=== PATIENT | female | born 1940 | race Caucasian/White ===

== ENCOUNTER 2017-08-16 09:26 | Inpatient (IN) | payer MEDICARE, OTHER ==
--- NOTE | 2017-08-16 09:32 | ED ---
General Adult HPI - General Stated complaint: SOB Time Seen by Provider: 08/16/17 09:26 Source: patient, EMS, RN notes reviewed, old records reviewed Mode of arrival: EMS - History of Present Illness Initial comments: This is a 76-year-old female history of dementia and has history of atrial fibrillation per old records who is brought in by EMS with complaints of shortness of breath she was brought in by EMS from an [facility] home that apparently is closing in 5 days. Per paramedics patient demonstrates no complaints does not seem shortness of breath she has adequate aeration and pulse oximetry. No reports of fevers chills nausea vomiting sweats trauma. No other history available currently. - Related Data Home Medications Medication Instructions Recorded Confirmed Donepezil HCl [Aricept] 10 mg PO HS 02/03/14 08/16/17 Lisinopril-Hctz 10-12.5 mg 1 each PO DAILY 02/03/14 08/16/17 [Zestoretic 10-12.5] Memantine HCl [Namenda] 5 mg PO BID 02/03/14 08/16/17 Simvastatin [Zocor] 40 mg PO HS 02/03/14 08/16/17 Acetaminophen [Tylenol] 1 - 2 tab PO Q4H PRN 07/04/14 08/16/17 Naproxen Sodium [Aleve] 220 mg PO Q12HR PRN 07/04/14 08/16/17 Previous Rx's Medication Instructions Recorded Warfarin [Coumadin] 5 mg PO DAILY@1800 #60 tablet 02/06/14 Allergies Allergy/AdvReac Type Severity Reaction Status Date / Time aspirin [From Soma Compound] Allergy Unknown Verified 07/06/14 09:25 carisoprodol Allergy Unknown Verified 07/06/14 09:25 [From Soma Compound] Penicillins Allergy Rash/Hives Verified 07/06/14 09:25 cortisone AdvReac WITH Verified 07/06/14 09:25 INJECTIONS, GETS DIZZY BRIEFLY Review of Systems ROS Statement: Those systems with pertinent positive or pertinent negative responses have been documented in the HPI. ROS Other: All systems not noted in ROS Statement are negative. Limitations: ROS unobtainable due to patients medical condition Past Medical History Past Medical History: Atrial Fibrillation, Cancer, Dementia, Hyperlipidemia, Hypertension, Memory Impairment, Osteoarthritis (OA), Skin Disorder Additional Past Medical History / Comment(s): VARICOSE VEINS. vascular dementia ; vitamin D deficiency; PAF. 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 RECENT C/O NT IN LT FINGERTIPS. History of Any Multi-Drug Resistant Organisms: None Reported Past Surgical History: Adenoidectomy, Appendectomy, Section, Cholecystectomy, Hysterectomy, Orthopedic Surgery, Tonsillectomy Additional Past Surgical History / Comment(s): KEVIN TOTAL KNEES AND HIPS. C- section 3, colonoscopy many years ago. EXC SKIN CA FOREHEAD. Past Anesthesia/Blood Transfusion Reactions: Family History of Problems w/ Anesthesia, Postoperative Nausea & Vomiting (PONV) Additional Past Anesthesia/Blood Transfusion Reaction / Comment(s): SHAWN HAS PONV Smoking Status: Never smoker - Past Family History Daughter(s) Family Medical History: No Reported History Mother Family Medical History: Myocardial Infarction (MD) Father Family Medical History: Cancer Brother(s) Family Medical History: COPD Sister(s) Family Medical History: No Reported History Son(s) Family Medical History: No Reported History General Exam - General Exam Comments Initial Comments: This a well-developed well-nourished awake alert pleasant female who does demonstrate the stigmata of dementia General appearance: alert, in no apparent distress Head exam: Present: atraumatic, normocephalic, normal inspection Eye exam: Present: normal appearance, PERRL, EOMI. Absent: scleral icterus, conjunctival injection, periorbital swelling ENT exam: Present: normal exam, mucous membranes moist Neck exam: Present: normal inspection. Absent: tenderness, meningismus, lymphadenopathy Respiratory exam: Present: decreased breath sounds (Diminished breath sounds on the left side compared to the right). Absent: respiratory distress, wheezes, rales, rhonchi, stridor Cardiovascular Exam: Present: regular rate, normal rhythm, normal heart sounds. Absent: systolic murmur, diastolic murmur, rubs, gallop, clicks GI/Abdominal exam: Present: soft, normal bowel sounds. Absent: distended, tenderness, guarding, rebound, rigid Extremities exam: Present: normal inspection, full ROM, normal capillary refill. Absent: tenderness, pedal edema, joint swelling, calf tenderness Back exam: Present: normal inspection Neurological exam: Present: alert, oriented X3, CN II-XII intact Psychiatric exam: Present: normal affect, normal mood Skin exam: Present: warm, dry, intact, normal color. Absent: rash Course Vital Signs 08/16/17 08/16/17 08/16/17 09:28 11:28 12:48 Temperature 97.7 F Pulse Rate 91 94 81 Respiratory 16 18 16 Rate Blood Pressure 121/60 110/56 112/65 O2 Sat by Pulse 97 98 100 Oximetry Medical Decision Making - Medical Decision Making I did discuss the findings with Dr. Noel who did come to see the patient in emergency department patient will be admitted with consultation to Dr. Li's service. I did discuss this with him. There is some evidence of increased BNP indicating some congestive failure. - Lab Data Result diagrams: 08/16/17 11:25 08/16/17 11:25 Lab Results 08/16/17 08/16/17 08/16/17 Range/Units 11:25 11:25 11:25 WBC (3.8-10.6) k/uL RBC (3.80-5.40) m/uL Hgb (11.4-16.0) gm/dL Hct (34.0-46.0) % MCV (80.0-100.0) fL MCH (25.0-35.0) pg MCHC (31.0-37.0) g/dL RDW (11.5-15.5) % Plt Count (150-450) k/uL Neutrophils % % Lymphocytes % % Monocytes % % Eosinophils % % Basophils % % Neutrophils # (1.3-7.7) k/uL Lymphocytes # (1.0-4.8) k/uL Monocytes # (0-1.0) k/uL Eosinophils # (0-0.7) k/uL Basophils # (0-0.2) k/uL Manual Slide Review Poikilocytosis (manual Anisocytosis Microcytosis Ovalocytes PT 54.0 H (9.0-12.0) sec INR 5.9 H* (<1.2) APTT 37.6 H (22.0-30.0) sec Sodium (137-145) mmol/L Potassium (3.5-5.1) mmol/L Chloride (98-107) mmol/L Carbon Dioxide (22-30) mmol/L Anion Gap mmol/L BUN (7-17) mg/dL Creatinine (0.52-1.04) mg/dL Est GFR (CKD-EPI)AfAm (>60 ml/min/1.73 sqM) Est GFR (CKD-EPI)NonAf (>60 ml/min/1.73 sqM) Glucose (74-99) mg/dL Calcium (8.4-10.2) mg/dL Magnesium (1.6-2.3) mg/dL Total Bilirubin (0.2-1.3) mg/dL AST (14-36) U/L ALT (9-52) U/L Alkaline Phosphatase (38-126) U/L Total Creatine Kinase 24 L (30-135) U/L CK-MB (CK-2) 0.9 (0.0-2.4) ng/mL CK-MB (CK-2) Rel Index 3.8 Troponin I <0.012 (0.000-0.034) ng/mL NT-Pro-B Natriuret Pep 2770 pg/mL Total Protein (6.3-8.2) g/dL Albumin (3.5-5.0) g/dL 08/16/17 08/16/17 Range/Units 11:25 11:25 WBC 16.4 H (3.8-10.6) k/uL RBC 4.02 (3.80-5.40) m/uL Hgb 10.1 L (11.4-16.0) gm/dL Hct 31.2 L (34.0-46.0) % MCV 77.8 L (80.0-100.0) fL MCH 25.0 (25.0-35.0) pg MCHC 32.2 (31.0-37.0) g/dL RDW 16.4 H (11.5-15.5) % Plt Count 311 (150-450) k/uL Neutrophils % 71 % Lymphocytes % 4 % Monocytes % 5 % Eosinophils % 20 % Basophils % 0 % Neutrophils # 11.6 H (1.3-7.7) k/uL Lymphocytes # 0.7 L (1.0-4.8) k/uL Monocytes # 0.7 (0-1.0) k/uL Eosinophils # 3.2 H (0-0.7) k/uL Basophils # 0.1 (0-0.2) k/uL Manual Slide Review Performed Poikilocytosis (manual Present Anisocytosis Slight Microcytosis Slight Ovalocytes Present PT (9.0-12.0) sec INR (<1.2) APTT (22.0-30.0) sec Sodium 131 L (137-145) mmol/L Potassium 4.2 (3.5-5.1) mmol/L Chloride 97 L (98-107) mmol/L Carbon Dioxide 25 (22-30) mmol/L Anion Gap 9 mmol/L BUN 17 (7-17) mg/dL Creatinine 0.61 (0.52-1.04) mg/dL Est GFR (CKD-EPI)AfAm >90 (>60 ml/min/1.73 sqM) Est GFR (CKD-EPI)NonAf 87 (>60 ml/min/1.73 sqM) Glucose 109 H (74-99) mg/dL Calcium 8.5 (8.4-10.2) mg/dL Magnesium 1.9 (1.6-2.3) mg/dL Total Bilirubin 0.5 (0.2-1.3) mg/dL AST 21 (14-36) U/L ALT 20 (9-52) U/L Alkaline Phosphatase 103 (38-126) U/L Total Creatine Kinase (30-135) U/L CK-MB (CK-2) (0.0-2.4) ng/mL CK-MB (CK-2) Rel Index Troponin I (0.000-0.034) ng/mL NT-Pro-B Natriuret Pep pg/mL Total Protein 5.2 L (6.3-8.2) g/dL Albumin 2.7 L (3.5-5.0) g/dL - Radiology Data Radiology results: report reviewed (I did review the imaging and report is evidence of opacification of left lung field. Suspicion for metastatic disease. ), image reviewed Disposition Clinical Impression: Congestive heart failure, Lung mass Disposition: ADMITTED IP TO THIS [facility] Condition: Stable Referrals: Francisco Gonzales MD [Primary Care Provider] - 1-2 days
--- NOTE | 2017-08-16 09:54 | XR ---
EXAMINATION TYPE: XR chest 2V DATE OF EXAM: 08/16/2017 HISTORY: cough. REFERENCE: Previous study dated 02/03/2014. FINDINGS: There is nearly complete opacification of the left hemithorax. There are nodular densities in the left hemithorax as well as the right hemithorax. Heart size is obscured. The left pleural spac e is obscured. IMPRESSION: 1. NEAR COMPLETE OPACIFICATION OF THE LEFT HEMITHORAX. 2. I SUSPECT METASTATIC DISEASE BILATERALLY.
[2017-08-16 11:38] LABS: Anisocytosis Slight; Basophils # (A) 0.1 k/uL (0-0.2); Basophils % (A) 0 %; Eosinophils # (A) 3.2 k/uL (0-0.7); Eosinophils % (A) 20 %; HCT 31.2 % (34.0-46.0); HGB 10.1 gm/dL (11.4-16.0); Lymphocytes # (A) 0.7 k/uL (1.0-4.8); Lymphocytes % (A) 4 %; MCHC 32.2 g/dL (31.0-37.0); MCV 77.8 fL (80.0-100.0); Mean Platelet Volume 7.6; Microcytosis Slight; Monocytes # (A) 0.7 k/uL (0-1.0); Monocytes % (A) 5 %; Neutrophils # (A) 11.6 k/uL (1.3-7.7); Neutrophils % (A) 71 %; Platelet Count 311 k/uL (150-450); RBC 4.02 m/uL (3.80-5.40); RDW 16.4 % (11.5-15.5); WBC 16.4 k/uL (3.8-10.6)
[2017-08-16 11:53] LABS: INR 5.9 (<1.2); Partial Thromboplastin Time 37.6 sec (22.0-30.0)
[2017-08-16 11:56] LABS: ALT 20 U/L (9-52); AST 21 U/L (14-36); Albumin 2.7 g/dL (3.5-5.0); Alkaline Phosphatase 103 U/L (38-126); Anion Gap 9 mmol/L; Blood Urea Nitrogen 17 mg/dL (7-17); Calcium 8.5 mg/dL (8.4-10.2); Carbon Dioxide 25 mmol/L (22-30); Chloride 97 mmol/L (98-107); Glucose 109 mg/dL (74-99); Magnesium 1.9 mg/dL (1.6-2.3); Potassium 4.2 mmol/L (3.5-5.1); Sodium 131 mmol/L (137-145); Total Bilirubin 0.5 mg/dL (0.2-1.3); Total Protein 5.2 g/dL (6.3-8.2)
[2017-08-16 11:57] LABS: Ovalocytes Present; Poikilocytosis (M) Present
[2017-08-16 11:59] LABS: Creatine Kinase 24 U/L (30-135)
[2017-08-16 12:12] LABS: Creatine Kinase MB 0.9 ng/mL (0.0-2.4); Troponin I <0.012 ng/mL (0.000-0.034)
[2017-08-16] MEDS ORDERED: ACETAMINOPHEN TAB 325 MG TAB PO PRN (13:29)
[2017-08-16] MEDS ORDERED: NAPROXEN 250 MG TAB PO PRN (13:29)
[2017-08-16] MEDS: SODIUM CHLORIDE 0.9% 1,000 ML IV SCH (14:40)
[2017-08-16] MEDS: FUROSEMIDE 10 MG/ML 4 ML VIAL IV SCH (17:13)
[2017-08-16] MEDS: ATORVASTATIN 20 MG TAB PO SCH (20:47)
[2017-08-16] MEDS: DONEPEZIL 10 MG TAB PO SCH (21:34)
[2017-08-16] MEDS: MEMANTINE 5 MG TAB PO SCH (21:34)
[2017-08-16 22:51] LABS: Amorphous Sediment,Urine Rare /hpf; Appearance,Urine Clear (Clear); Bilirubin,Urine Negative (Negative); Blood,Urine Negative (Negative); Color,Urine Light Yellow; Glucose,Urine (UA) Negative (Negative); Hyaline Casts,Urine 3 /lpf (0-2); Ketones,Urine Negative (Negative); Leukocyte Esterase,Urine Trace (Negative); Mucus,Urine Rare /hpf; Nitrite,Urine Positive (Negative); Protein,Urine Negative (Negative); RBC,Urine 1 /hpf (0-5); Specific Gravity,Urine 1.005 (1.001-1.035); Urobilinogen,Urine <2.0 mg/dL (<2.0); WBC,Urine 1 /hpf (0-5)
[2017-08-17] MEDS: FUROSEMIDE 10 MG/ML 4 ML VIAL IV SCH ×2 (06:23→20:36)
[2017-08-17 07:01] LABS: Prothrombin Time 56.9 sec (9.0-12.0)
[2017-08-17 07:04] LABS: INR 6.2 (<1.2)
[2017-08-17] MEDS: LISINOPRIL-HCTZ 10-12.5 MG 1 EACH TAB PO SCH (09:33)
[2017-08-17] MEDS: MEMANTINE 5 MG TAB PO SCH ×2 (09:33→20:36)
[2017-08-17] MEDS ORDERED: RX INFO: IV CONTRAST WAS GIVEN 1 EACH MISC MISCELLANE PRN (10:01)
[2017-08-17] MEDS ORDERED: diphenhydrAMINE 50 MG/ML 1 ML VIAL IVP STA (10:02)
[2017-08-17] MEDS ORDERED: methylPREDNISolone SOD SUCCI 125 MG/2 ML VIAL IV STA (10:02)
--- NOTE | 2017-08-17 11:13 | P.CNPUL ---
History of Present Illness Consult date: 08/17/17 Requesting physician: Laila Noel Reason for consult: dyspnea, abnormal CXR/CT Chief complaint: Shortness of breath, opacification of the left hemothorax History of present illness: Mrs. Decker is a 77-year-old white female patient of Dr. Francisco Gonzales who presented to the emergency department on 08/16/2017 evaluation of some shortness of breath. Patient resides at an adult foster care facility, has an underlying history of dementia, atrial fibrillation, hypertension, hyperlipidemia, osteoarthritis, skin cancer with resection. Patient is a lifetime nonsmoker. Chest x-ray taken in the emergency room showed near complete opacification of the left hemothorax. Patient denied any fever or chills, denied any chest pain. No evidence of hypoxemia, she is maintaining good O2 saturations on room air, above 95%. Respirations are even and nonlabored. Patient is in A. fib, with a rate of 103 bpm, and she is anticoagulated on Coumadin. We're consulted in regards of the left hemothorax opacification suspicious for metastatic disease versus mucus plugging. Review of Systems All systems: negative Constitutional: Denies chills, Denies fever Eyes: denies blurred vision, denies pain Ears, nose, mouth and throat: Denies headache, Denies sore throat Cardiovascular: Denies chest pain, Denies shortness of breath Respiratory: Denies cough Gastrointestinal: Denies abdominal pain, Denies diarrhea, Denies nausea, Denies vomiting Genitourinary: Denies dysuria, Denies hematuria Musculoskeletal: Denies myalgias Integumentary: Denies pruritus, Denies rash Neurological: Denies numbness, Denies weakness Psychiatric: Denies anxiety, Denies depression Endocrine: Denies fatigue, Denies weight change Past Medical History Past Medical History: Atrial Fibrillation, Cancer, Dementia, Hyperlipidemia, Hypertension, Memory Impairment, Osteoarthritis (OA), Skin Disorder Additional Past Medical History / Comment(s): VARICOSE VEINS. vascular dementia ; vitamin D deficiency; PAF. 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 RECENT C/O NT IN LT FINGERTIPS. History of Any Multi-Drug Resistant Organisms: None Reported Past Surgical History: Adenoidectomy, Appendectomy, Section, Cholecystectomy, Hysterectomy, Orthopedic Surgery, Tonsillectomy Additional Past Surgical History / Comment(s): KEVIN TOTAL KNEES AND HIPS. C- section 3, colonoscopy many years ago. EXC SKIN CA FOREHEAD. Past Anesthesia/Blood Transfusion Reactions: Family History of Problems w/ Anesthesia, Postoperative Nausea & Vomiting (PONV) Additional Past Anesthesia/Blood Transfusion Reaction / Comment(s): SHAWN HAS PONV Past Psychological History: No Psychological Hx Reported Smoking Status: Never smoker Past Alcohol Use History: None Reported Past Drug Use History: None Reported - Past Family History Daughter(s) Family Medical History: No Reported History Additional Family Medical History / Comment(s): Patient has 2 daughters with no major medical problems. Mother Family Medical History: Myocardial Infarction (ND) Additional Family Medical History / Comment(s): Mother at age 70 from myocardial infarction. Father Family Medical History: Cancer Additional Family Medical History / Comment(s): Father at age 70 from prostate cancer. Brother(s) Family Medical History: COPD Additional Family Medical History / Comment(s): One brother with history of COPD. Sister(s) Family Medical History: No Reported History Additional Family Medical History / Comment(s): One sister with no major medical problems. Son(s) Family Medical History: No Reported History Additional Family Medical History / Comment(s): one son with no major medical problems. Medications and Allergies Home Medications Medication Instructions Recorded Confirmed Type Donepezil HCl [Aricept] 10 mg PO HS@209902/03/14 08/16/17 History Lisinopril-Hctz 10-12.5 mg 1 tab PO QAM 02/03/14 08/16/17 History [Zestoretic 10-12.5] Simvastatin [Zocor] 40 mg PO HS@2100 02/03/14 08/16/17 History Memantine [Namenda] 10 mg PO BID@0700,209908/16/17 08/16/17 History Oxybutynin Chloride [Ditropan XL] 5 mg PO DAILY@0700 08/16/17 08/16/17 History Warfarin [Coumadin] 5 mg PO DAILY@1900 08/16/17 08/16/17 History Allergies Allergy/AdvReac Type Severity Reaction Status Date / Time aspirin [From Soma Compound] Allergy Unknown Verified 08/16/17 13:58 carisoprodol Allergy Unknown Verified 08/16/17 13:58 [From Soma Compound] ciprofloxacin [From Cipro] Allergy Unknown Verified 08/16/17 13:58 codeine Allergy Unknown Verified 08/16/17 13:58 dipyridamole Allergy Unknown Verified 08/16/17 13:58 [From Persantine] iodine Allergy Unknown Verified 08/16/17 13:58 meperidine [From Demerol] Allergy Unknown Verified 08/16/17 13:58 morphine Allergy Unknown Verified 08/16/17 13:58 Penicillins Allergy Rash/Hives Verified 08/16/17 13:58 cortisone AdvReac WITH Verified 08/16/17 13:58 INJECTIONS, GETS DIZZY BRIEFLY Physical Exam Vitals: Vital Signs Temp Pulse Pulse Resp BP BP Pulse Ox 08/17/17 04:00 98.0 F 108 H 18 148/69 97 08/17/17 00:00 97.2 F L 107 H 18 114/47 97 08/16/17 20:00 97.6 F 101 H 18 133/66 97 08/16/17 16:20 97.2 F L 101 H 18 123/78 100 08/16/17 15:06 98 F 96 18 101/56 97 08/16/17 13:52 97.5 F L 90 18 122/68 98 08/16/17 12:48 81 16 112/65 100 08/16/17 11:28 94 18 110/56 98 Intake and Output 08/16/17 08/17/17 08/17/17 22:59 06:59 14:59 Intake Total 240 60 Balance 240 60 Intake: Intake, IV Titration 60 Amount Sodium Chloride 0.9% 1, 60 000 ml @ 20 mls/hr IV . Q24H [facility] Rx#:[id number] Oral 240 Other: Voiding Method Toilet Toilet Weight 68.5 kg - Constitutional 77-year-old white female, thin, in no acute distress General appearance: no acute distress, thin - EENT Eyes: EOMI ENT: NA/AT Ears: bilateral: normal - Neck Neck: no lymphadenopathy Carotids: bilateral: upstroke normal Thyroid: bilateral: normal size - Respiratory Respiratory: left: diminished (Diminished breath sounds on the left) - Cardiovascular Rhythm: regularly irregular Heart sounds: normal: S1, S2 ankle Peripheral Edema: absent: None foot Peripheral Edema: absent: None dorsalis pedis Peripheral Pulses: bilateral: Normal radial pulse Peripheral Pulses: bilateral: Normal - Gastrointestinal General gastrointestinal: no organomegaly, soft, no tenderness - Integumentary Integumentary: normal turgor - Neurologic Neurologic: CNII-XII intact - Musculoskeletal Musculoskeletal: gait normal, strength equal bilaterally - Psychiatric Psychiatric: A&O x's 3, appropriate affect, intact judgment & insight Results - Laboratory Findings CBC and BMP: 08/16/17 11:25 08/16/17 11:25 PT/INR, D-dimer PT 56.9 sec (9.0-12.0) H 08/17/17 06:01 INR 6.2 (<1.2) H* 08/17/17 06:01 Abnormal lab findings: Abnormal Labs 08/16/17 08/16/17 08/16/17 11:25 11:25 11:25 WBC 16.4 H Hgb 10.1 L Hct 31.2 L MCV 77.8 L RDW 16.4 H Neutrophils # 11.6 H Lymphocytes # 0.7 L Eosinophils # 3.2 H PT 54.0 H INR 5.9 H* APTT 37.6 H Sodium Chloride Glucose Total Creatine Kinase 24 L Total Protein Albumin Urine Nitrite Ur Leukocyte Esterase Amorphous Sediment Hyaline Casts Urine Mucus 08/16/17 08/16/17 08/17/17 11:25 22:46 06:01 WBC Hgb Hct MCV RDW Neutrophils # Lymphocytes # Eosinophils # PT 56.9 H INR 6.2 H* APTT Sodium 131 L Chloride 97 L Glucose 109 H Total Creatine Kinase Total Protein 5.2 L Albumin 2.7 L Urine Nitrite Positive H Ur Leukocyte Esterase Trace H Amorphous Sediment Rare H Hyaline Casts 3 H Urine Mucus Rare H - Diagnostic Findings Chest x-ray: report reviewed, image reviewed Additional studies: Twelve-lead EKG reviewed Assessment and Plan Plan: Assessment: #1. Acute dyspnea, chest x-ray showed near complete opacification of the left hemothorax with nodular densities in the left and right hemothorax, rule out malignant lung disease versus mucus plugging versus pneumonia with postobstructive findings #2. Leukocytosis possibly related to left lung pneumonia #3. Supratherapeutic INR #4. Chronic atrial fibrillation, on chronic anticoagulation with Coumadin #5. History of vascular dementia, the patient is on Namenda and Aricept #6. Retention, hyperlipidemia #7. Osteoarthritis #8. Chronic anemia #9. Mild hyponatremia Plan: We'll obtain CT of the chest with contrast to characterize the left hemothorax, malignancy is suspected. For now patient denies any acute dyspnea, denies any sputum production or chest congestion. Lung sounds are diminished on the left, no wheezing no rhonchi noted. Patient has a guardian, and the consent is needed for IV contrast administration. We will premedicate patient with Solu- Medrol, Benadryl and Pepcid prior to obtaining the CT chest. We'll make further recommendations based on her the results of the CAT scan of the chest. I performed a history & physical examination of the patient and discussed their management with my nurse practitioner, Mandy Madison. I reviewed the nurse practitioner's note and agree with the documented findings and plan of care. Lung sounds are diminished on the left. The findings and the impression was discussed with the patient. I attest to the documentation by the nurse practitioner. Time with Patient: Greater than 30
[2017-08-17] MEDS: SODIUM CHLORIDE 0.9% 1,000 ML IV SCH (12:13)
[2017-08-17] MEDS: AZTREONAM 2 GM in SODIUM CHLORIDE 0.9% 100 ML IVPB SCH ×2 (12:13→20:35)
[2017-08-17 14:11] VITALS: BMI 23.6
[2017-08-17] MEDS: CLINDAMYCIN 600 MG in DEXTROSE 5% IN WATER 50 ML IVPB SCH ×4 (15:55→22:30)
[2017-08-17] MEDS ORDERED: diphenhydrAMINE 50 MG/ML 1 ML VIAL ONE (16:55)
[2017-08-17] MEDS ORDERED: FAMOTIDINE 20 MG/2 ML VIAL IV SCH (17:30)
--- NOTE | 2017-08-17 18:33 | CT ---
EXAMINATION TYPE: CT chest w con DATE OF EXAM: 08/17/2017 COMPARISON: Chest x-ray from yesterday and older study February 03, 2014 HISTORY: Abnormal chest x-ray CT DLP: 326.9 mGycm Automated exposure control for dose reduction was used. CONTRAST: CT scan of the chest is performed with IV Contrast, patient injected with 100 mL of Isovue 300. FINDINGS: LUNGS: There is respiratory motion artifact making evaluation suboptimal. There are scattered nodules throughout the right lung with largest measuring 1.4 x 1.1 cm in the right middle lobe axial image 3 5. There is small to moderate size left pleural effusion or fluid collection most prominent in the base. In the upper lung apex there is moderate eccentric pleural thickening with more masslike thickening or consolidation in the anterior apex extending medially. There is invasion of the mediastinum near a ortic arch axial image 23 with pleural-based mass measuring 4.0 x 6.3 cm axial image 24 noted. There is diffuse right lung atelectasis and/or irregular consolidation along the periphery. MEDIASTINUM: There are prominent left hilar lymph nodes likely subcentimeter near axial image 29. N o pericardial effusion is seen. Heart size is mildly enlarged. There is severe three-vessel coronary artery calcification. There are prominent but subcentimeter left supraclavicular lymph nodes OTHER: There is decompressed colon at level of splenic flexure. There is underlying scoliosis. There is moderate to severe multilevel spurring in the spine. There is moderate to severe degenerative manuel nge in both shoulders and glenohumeral joints. IMPRESSION: Metastatic malignancy suspected as there are numerous nodules in the visualized right estefani ng. There are suspicious lobulated pleural thickening and pleural-based mass in the left upper lung w ith mediastinal invasion present. Consider PET/CT follow-up. CT guided biopsy for tissue analysis can be performed if desired targeting medial left upper lobe pleural-based mass.
[2017-08-17] MEDS: ATORVASTATIN 20 MG TAB PO SCH (20:36)
[2017-08-17] MEDS: DONEPEZIL 10 MG TAB PO SCH (20:36)
--- NOTE | 2017-08-17 21:05 | P.HPIM ---
History of Present Illness H&P Date: 08/17/17 Chief Complaint: Shortness of breath This is a 77-year-old female patient of Dr. 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 Patient resides at [facility] and will be moving to [facility] in a couple days. Patient was having shortness of breath. She has underlying dementia and is unable to provide history. Family members are at bedside and patient has a public guardian. Patient was brought in by EMS to [facility] emergency center for evaluation. Her vital signs are stable. Pulse ox 97%. Leukocytosis 16.4, hemoglobin 10.1, sodium 131, chloride 97, blood sugar 109. ProBNP was 2770, troponin 0.012, INR 5.9. Albumin 2.7. Chest x-ray showed near complete opacification of the left hemithorax. Suspect metastatic disease bilaterally. Patient was started on IV Lasix and consult placed with Dr. Li and patient admitted to the selective care unit. Review of Systems ROS unobtainable: due to mental status All systems: negative Constitutional: Denies chills, Denies fever Eyes: denies blurred vision, denies pain Ears, nose, mouth and throat: Denies headache, Denies sore throat Cardiovascular: Reports shortness of breath, Denies chest pain Respiratory: Reports dyspnea, Denies cough Gastrointestinal: Denies abdominal pain, Denies diarrhea, Denies nausea, Denies vomiting Genitourinary: Denies dysuria, Denies hematuria Musculoskeletal: Denies myalgias Integumentary: Denies pruritus, Denies rash Neurological: Denies numbness, Denies weakness Psychiatric: Denies anxiety, Denies depression Endocrine: Denies fatigue, Denies weight change Past Medical History Past Medical History: Atrial Fibrillation, Cancer, Dementia, Hyperlipidemia, Hypertension, Memory Impairment, Osteoarthritis (OA), Skin Disorder Additional Past Medical History / Comment(s): VARICOSE VEINS. vascular dementia ; vitamin D deficiency; PAF. 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 RECENT C/O NT IN LT FINGERTIPS. History of Any Multi-Drug Resistant Organisms: None Reported Past Surgical History: Adenoidectomy, Appendectomy, Section, Cholecystectomy, Hysterectomy, Orthopedic Surgery, Tonsillectomy Additional Past Surgical History / Comment(s): KEVIN TOTAL KNEES AND HIPS. C- section 3, colonoscopy many years ago. EXC SKIN CA FOREHEAD. Past Anesthesia/Blood Transfusion Reactions: Family History of Problems w/ Anesthesia, Postoperative Nausea & Vomiting (PONV) Additional Past Anesthesia/Blood Transfusion Reaction / Comment(s): SHAWN HAS PONV Past Psychological History: No Psychological Hx Reported Smoking Status: Never smoker Past Alcohol Use History: None Reported Past Drug Use History: None Reported - Past Family History Daughter(s) Family Medical History: No Reported History Additional Family Medical History / Comment(s): Patient has 2 daughters with no major medical problems. Mother Family Medical History: Myocardial Infarction ([place]) Additional Family Medical History / Comment(s): Mother at age 70 from myocardial infarction. Father Family Medical History: Cancer Additional Family Medical History / Comment(s): Father at age 70 from prostate cancer. Brother(s) Family Medical History: COPD Additional Family Medical History / Comment(s): One brother with history of COPD. Sister(s) Family Medical History: No Reported History Additional Family Medical History / Comment(s): One sister with no major medical problems. Son(s) Family Medical History: No Reported History Additional Family Medical History / Comment(s): one son with no major medical problems. Medications and Allergies Home Medications Medication Instructions Recorded Confirmed Type Donepezil HCl [Aricept] 10 mg PO HS@2100 02/03/14 08/16/17 History Lisinopril-Hctz 10-12.5 mg 1 tab PO QAM 02/03/14 08/16/17 History [Zestoretic 10-12.5] Simvastatin [Zocor] 40 mg PO HS@2100 02/03/14 08/16/17 History Memantine [Namenda] 10 mg PO BID@0700,209908/16/17 08/16/17 History Oxybutynin Chloride [Ditropan XL] 5 mg PO DAILY@0700 08/16/17 08/16/17 History Warfarin [Coumadin] 5 mg PO DAILY@1900 08/16/17 08/16/17 History Allergies Allergy/AdvReac Type Severity Reaction Status Date / Time aspirin [From Soma Compound] Allergy Unknown Verified 08/16/17 13:58 carisoprodol Allergy Unknown Verified 08/16/17 13:58 [From Soma Compound] ciprofloxacin [From Cipro] Allergy Unknown Verified 08/16/17 13:58 codeine Allergy Unknown Verified 08/16/17 13:58 dipyridamole Allergy Unknown Verified 08/16/17 13:58 [From Persantine] iodine Allergy Unknown Verified 08/16/17 13:58 meperidine [From Demerol] Allergy Unknown Verified 08/16/17 13:58 morphine Allergy Unknown Verified 08/16/17 13:58 Penicillins Allergy Rash/Hives Verified 08/16/17 13:58 cortisone AdvReac WITH Verified 08/16/17 13:58 INJECTIONS, GETS DIZZY BRIEFLY Physical Exam Vitals: Vital Signs Temp Pulse Pulse Resp BP BP Pulse Ox 08/17/17 04:00 98.0 F 108 H 18 148/69 97 08/17/17 00:00 97.2 F L 107 H 18 114/47 97 08/16/17 20:00 97.6 F 101 H 18 133/66 97 08/16/17 16:20 97.2 F L 101 H 18 123/78 100 08/16/17 15:06 98 F 96 18 101/56 97 08/16/17 13:52 97.5 F L 90 18 122/68 98 08/16/17 12:48 81 16 112/65 100 08/16/17 11:28 94 18 110/56 98 08/16/17 09:28 97.7 F 91 16 121/60 97 Intake and Output 08/16/17 08/17/17 08/17/17 22:59 06:59 14:59 Intake Total 240 60 Balance 240 60 Intake: Intake, IV Titration 60 Amount Sodium Chloride 0.9% 1, 60 000 ml @ 20 mls/hr IV . Q24H [facility] Rx#:[id number] Oral 240 Other: Voiding Method Toilet Toilet Weight 68.5 kg General appearance: no acute distress - EENT Eyes: Reports EOMI, Reports PERRLA, Reports dentition normal, Denies photophobia , Denies ptosis, Denies scleral icterus ENT: Reports hard of hearing, Reports normal oropharynx, Denies thrush Ears: bilateral: normal - Neck Neck: Reports normal ROM, Denies stridor, Denies thyromegaly Carotids: bilateral: upstroke normal Thyroid: bilateral: normal size - Respiratory Respiratory: left side diminished, negative: rales, rhonchi, wheezing - Cardiovascular Rhythm: irregularly irregular Heart sounds: normal: S1, S2 Abnormal Heart Sounds: Reports systolic murmur (2/6 at the left sternal border) - Gastrointestinal General gastrointestinal: Reports normal bowel sounds, Reports soft, Reports ventral hernia, Denies organomegaly, Denies splenomegaly - Integumentary Integumentary: Reports normal, Denies rash, Denies ulcer - Neurologic Neurologic: CNII-XII intact - Musculoskeletal Musculoskeletal: Reports generalized weakness, Reports strength equal bilaterally - Psychiatric Psychiatric: Reports appropriate affect (Baseline dementia follow simple commands only.) Results CBC & Chem 7: 08/16/17 11:25 08/16/17 11:25 Labs: Abnormal Lab Results - Last 24 Hours (Table) 08/16/17 08/16/17 08/16/17 Range/Units 11:25 11:25 11:25 WBC 16.4 H (3.8-10.6) k/uL Hgb 10.1 L (11.4-16.0) gm/dL Hct 31.2 L (34.0-46.0) % MCV 77.8 L (80.0-100.0) fL RDW 16.4 H (11.5-15.5) % Neutrophils # 11.6 H (1.3-7.7) k/uL Lymphocytes # 0.7 L (1.0-4.8) k/uL Eosinophils # 3.2 H (0-0.7) k/uL PT 54.0 H (9.0-12.0) sec INR 5.9 H* (<1.2) APTT 37.6 H (22.0-30.0) sec Sodium (137-145) mmol/L Chloride (98-107) mmol/L Glucose (74-99) mg/dL Total Creatine Kinase 24 L (30-135) U/L Total Protein (6.3-8.2) g/dL Albumin (3.5-5.0) g/dL Urine Nitrite (Negative) Ur Leukocyte Esterase (Negative) Amorphous Sediment (None) /hpf Hyaline Casts (0-2) /lpf Urine Mucus (None) /hpf 08/16/17 08/16/17 08/17/17 Range/Units 11:25 22:46 06:01 WBC (3.8-10.6) k/uL Hgb (11.4-16.0) gm/dL Hct (34.0-46.0) % MCV (80.0-100.0) fL RDW (11.5-15.5) % Neutrophils # (1.3-7.7) k/uL Lymphocytes # (1.0-4.8) k/uL Eosinophils # (0-0.7) k/uL PT 56.9 H (9.0-12.0) sec INR 6.2 H* (<1.2) APTT (22.0-30.0) sec Sodium 131 L (137-145) mmol/L Chloride 97 L (98-107) mmol/L Glucose 109 H (74-99) mg/dL Total Creatine Kinase (30-135) U/L Total Protein 5.2 L (6.3-8.2) g/dL Albumin 2.7 L (3.5-5.0) g/dL Urine Nitrite Positive H (Negative) Ur Leukocyte Esterase Trace H (Negative) Amorphous Sediment Rare H (None) /hpf Hyaline Casts 3 H (0-2) /lpf Urine Mucus Rare H (None) /hpf Thrombosis Risk Factor Assmnt - DVT/VTE Prophylaxis DVT/VTE Prophylaxis: Pharmacologic Prophylaxis ordered - Choose All That Apply Any of the Below Risk Factors Present?: Yes Each Factor Represents 1 point: Swollen legs (current), Varicose veins Other Risk Factors: Yes Each Risk Factor Represents 3 Points: Age 75 years or older Other congenital or acquired thrombophilia - If yes, enter type in comment: No Thrombosis Risk Factor Assessment Total Risk Factor Score: 5 Thrombosis Risk Factor Assessment Level: High Risk Assessment and Plan Plan: 1. Dyspnea secondary to near complete opacification of the left hemithorax and suspected bilateral metastatic lung disease, possible postobstructive pneumonia or gram negative pneumonia. Patient started on Azactam and Clindamycin Consult placed with Dr. Li. Continue Lasix [address] of the chest has been ordered. Sputum culture to be collected. 2. Paroxysmal atrial fibrillation. Coumadin is currently on hold due to coagulopathy. Monitor INR daily. 3. Hypertension, hypertensive cardiovascular disease with left ventricular hypertrophy. Continue lisinopril/hydrochlorothiazide daily. 4. Hyperlipidemia. Continue Lipitor 20 mg at bedtime 5. Vascular dementia. Continue Namenda 5 mg twice daily and Aricept 10 mg at bedtime. 6. Generalized osteoarthritis. Stable. 7. Overactive bladder. Continue oxybutynin. 8. Coagulopathy secondary to Coumadin use. 9. DVT prophylaxis. Patient on Coumadin. 10. GI prophylaxis. Protonix. 11. Severe protein calorie malnutrition. Routine supplementation. Patient will be admitted to the hospital for a minimum of 2 night stay. Discharge plan: [facility]. PT and OT consults. manager developmental is following. Impression and plan of care have been directed as dictated by the signing physician. Ashley Orellana nurse practitioner acting as scribe for signing physician.
--- NOTE | 2017-08-17 21:08 | P.PN ---
Subjective Progress Note Date: 08/17/17 This is a 77-year-old female patient of Dr. 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 Patient resides at [facility] and will be moving to [facility] in a couple days. Patient was having shortness of breath. She has underlying dementia and is unable to provide history. Family members are at bedside and patient has a public guardian. Patient was brought in by EMS to [facility] emergency center for evaluation. Her vital signs are stable. Pulse ox 97%. Leukocytosis 16.4, hemoglobin 10.1, sodium 131, chloride 97, blood sugar 109. ProBNP was 2770, troponin 0.012, INR 5.9. Albumin 2.7. Chest x-ray showed near complete opacification of the left hemithorax. Suspect metastatic disease bilaterally. Patient was started on IV Lasix and consult placed with Dr. Li and patient admitted to the selective care unit. 08/17. Repeat chest x-ray this morning again reveals complete opacification of the left hemithorax. She appears to be comfortable. Pulse ox is 97% on room air. CT of the chest to be done today. Antibiotics with Azactam and clindamycin will be added. Sputum to be collected for culture and sensitivity. Objective - Vital Signs Vital signs: Vital Signs Temp 98.0 F 08/17/17 04:00 Pulse 108 H 08/17/17 04:00 Resp 18 08/17/17 04:00 BP 148/69 08/17/17 04:00 Pulse Ox 97 08/17/17 04:00 Intake & Output 08/16/17 08/17/17 08/17/17 18:59 06:59 18:59 Intake Total 300 240 Balance 300 240 Weight 68.039 kg 68.5 kg 68.5 kg Intake: Intake, IV Titration 60 Amount Sodium Chloride 0.9% 1, 60 000 ml @ 20 mls/hr IV . Q24H [facility] Rx#:[id number] Oral 240 240 Other: Voiding Method Toilet # Voids 2 # Bowel Movements 0 - Exam General appearance: no acute distress - EENT Eyes: Reports EOMI, Reports PERRLA, Reports dentition normal, Denies photophobia , Denies ptosis, Denies scleral icterus ENT: Reports hard of hearing, Reports normal oropharynx, Denies thrush Ears: bilateral: normal - Neck Neck: Reports normal ROM, Denies stridor, Denies thyromegaly Carotids: bilateral: upstroke normal Thyroid: bilateral: normal size - Respiratory Respiratory: left side diminished, negative: rales, rhonchi, wheezing - Cardiovascular Rhythm: irregularly irregular Heart sounds: normal: S1, S2 Abnormal Heart Sounds: Reports systolic murmur (2/6 at the left sternal border) - Gastrointestinal General gastrointestinal: Reports normal bowel sounds, Reports soft, Reports ventral hernia, Denies organomegaly, Denies splenomegaly - Integumentary Integumentary: Reports normal, Denies rash, Denies ulcer - Neurologic Neurologic: CNII-XII intact - Musculoskeletal Musculoskeletal: Reports generalized weakness, Reports strength equal bilaterally - Psychiatric Psychiatric: Reports appropriate affect (Baseline dementia follow simple commands only.) - Labs CBC & Chem 7: 08/16/17 11:25 08/16/17 11:25 Labs: Abnormal Lab Results - Last 24 Hours (Table) 08/16/17 08/17/17 Range/Units 22:46 06:01 PT 56.9 H (9.0-12.0) sec INR 6.2 H* (<1.2) Urine Nitrite Positive H (Negative) Ur Leukocyte Esterase Trace H (Negative) Amorphous Sediment Rare H (None) /hpf Hyaline Casts 3 H (0-2) /lpf Urine Mucus Rare H (None) /hpf Assessment and Plan Plan: 1. Dyspnea secondary to near complete opacification of the left hemithorax and suspected bilateral metastatic lung disease, possible postobstructive pneumonia or gram negative pneumonia. Patient started on Azactam and Clindamycin Consult with Dr. Li appreciated. Continue Lasix [address] of the chest has been ordered. Sputum culture to be collected. 2. Paroxysmal atrial fibrillation. Coumadin is currently on hold due to coagulopathy. Monitor INR daily. 3. Hypertension, hypertensive cardiovascular disease with left ventricular hypertrophy. Continue lisinopril/hydrochlorothiazide daily. 4. Hyperlipidemia. Continue Lipitor 20 mg at bedtime 5. Vascular dementia. Continue Namenda 5 mg twice daily and Aricept 10 mg at bedtime. 6. Generalized osteoarthritis. Stable. 7. Overactive bladder. Continue oxybutynin. 8. Coagulopathy secondary to Coumadin use. 9. DVT prophylaxis. Patient on Coumadin. 10. GI prophylaxis. Protonix. 11. Severe protein calorie malnutrition. Routine supplementation. Patient will be admitted to the hospital for a minimum of 2 night stay. Discharge plan: [facility]. PT and OT consults. seniour insight manager is following. Impression and plan of care have been directed as dictated by the signing physician. Ashley Orellana nurse practitioner acting as scribe for signing physician.
[2017-08-18] MEDS: AZTREONAM 2 GM in SODIUM CHLORIDE 0.9% 100 ML IVPB SCH ×2 (04:00→11:56)
[2017-08-18] MEDS: CLINDAMYCIN 600 MG in DEXTROSE 5% IN WATER 50 ML IVPB SCH ×4 (06:00→13:55)
[2017-08-18] MEDS: FUROSEMIDE 10 MG/ML 4 ML VIAL IV SCH (06:46)
[2017-08-18] MEDS: MEMANTINE 5 MG TAB PO SCH (08:10)
[2017-08-18] MEDS: LISINOPRIL-HCTZ 10-12.5 MG 1 EACH TAB PO SCH (08:10)
[2017-08-18 08:20] VITALS: TEMP 97.4
[2017-08-18] MEDS ORDERED: FAMOTIDINE 20 MG/2 ML VIAL IV SCH (09:00)
--- NOTE | 2017-08-18 09:42 | P.PN ---
Subjective Progress Note Date: 08/18/17 Principal diagnosis: Abnormal chest x-ray Progress note dated 08/18/2017 77-year-old female with female who apparently sees Dr. Francisco Gonzales. Presented to the emergency room on August 16 with complaints of shortness of breath. The patient apparently resides in an adult foster alf and has a legal guardian. She has history of underlying dementia atrial fibrillation hypertension hyperlipidemia osteoarthritis skin cancer. She apparently is a lifetime nonsmoker. Chest x-ray showed complete opacification of the left lung. A computed tomography scan was ordered. It was done yesterday shows significant disease in the left and right chest. The overall pattern is consistent with primary lung cancer with metastasis to the right lung. She is a pleural-based mass in the left upper lobe. The patient is very confused and disoriented. Really can't discuss CODE STATUS her options for biopsy with the patient. We'll try to do it with the guardian or the daughter. We attempted to call the guardian without an answer. Objective - Vital Signs Vital signs: Vital Signs Temp 97.4 F L 08/18/17 08:00 Pulse 101 H 08/18/17 08:00 Resp 17 08/18/17 08:00 BP 100/55 08/18/17 08:00 Pulse Ox 97 08/18/17 08:00 Intake & Output 08/17/17 08/18/17 08/18/17 18:59 06:59 18:59 Intake Total 240 200 Balance 240 200 Weight 68.5 kg 53.3 kg Intake: Intake, IV Titration 200 Amount Aztreonam 2 gm In Sodium 100 Chloride 0.9% 100 ml @ 100 mls/hr IVPB Q8H [facility] Rx#:[id number] Clindamycin 600 mg In 100 Dextrose 5% in Water 50 ml @ 100 mls/hr IVPB Q8H [facility] Rx#:[id number] Oral 240 Other: Voiding Method Toilet Toilet # Voids 2 4 # Bowel Movements 0 0 - Exam No acute distress, confused. HEENT examination is grossly unremarkable. Mucous membranes are moist. No oral lesions. Neck supple. Full range of motion. No adenopathy thyromegaly or neck vein distention. Cardiovascular examination reveals regular rhythm rate. S1-S2 normal. No S3 or S4. No discernible murmur noted. Lungs reveal diminished breath sounds on the left. This for the primary disease process is noted. No adventitious lung sounds are noted. The right lung is relatively clear.. Abdomen soft bowel sounds are heard. No masses or tenderness. Extremities are intact. No cyanosis clubbing or edema. Skin is without rash or lesion. Neurologic examination is brief but nonfocal. - Labs CBC & Chem 7: 08/16/17 11:25 08/16/17 11:25 Assessment and Plan Assessment: Assessment Shortness of breath, likely related to complete opacification of the left hemithorax with nodular densities on the right side consistent with primary lung cancer postobstructive pneumonia and metastasis. Chronic atrial fibrillation History of vascular dementia Hyperlipidemia Osteoarthritis Chronic anemia Mild hyponatremia Hypertension by history Plan: Plan dated 08/18/2017 We will attempt to talk to the guardian. If not we'll talk to the daughter. I would opt for more conservative approach. If absolutely need to know the diagnosis and will have interventional radiology do a fine-needle aspiration of the left upper lobe pleural-based lesion. Overall prognosis is poor. Even if a diagnosis of cancer was made, she would not be a great candidate for chemo/ radiation. Additional recommendations and suggestions are forthcoming. Time with Patient: Less than 30
[2017-08-18 12:15] VITALS: RESP 18
[2017-08-18 12:30] LABS: Prothrombin Time 47.8 sec (9.0-12.0)
[2017-08-18 12:36] LABS: INR 5.3 (<1.2)
[2017-08-18] MEDS: SODIUM CHLORIDE 0.9% 1,000 ML IV SCH (13:56)
--- NOTE | 2017-08-18 14:14 | P.DS ---
Providers Date of admission: 08/16/17 13:27 Expected date of discharge: 08/18/17 Attending physician: Laila Noel Consults: 08/16/17 13:27 Consult Physician Routine Consulting Provider: Yohan Li Consult Reason/Comments: Lung mass, opacified left lung field Do you want consulting provider notified?: Already Contacted Primary care physician: Francisco Gonzales [facility] Course: This is a 77-year-old female patient of Dr. 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 Patient resides at [facility] and will be moving to [facility] in a couple days. Patient was having shortness of breath. She has underlying dementia and is unable to provide history. Family members are at bedside and patient has a public guardian. Patient was brought in by EMS to [facility] emergency center for evaluation. Her vital signs are stable. Pulse ox 97%. Leukocytosis 16.4, hemoglobin 10.1, sodium 131, chloride 97, blood sugar 109. ProBNP was 2770, troponin 0.012, INR 5.9. Albumin 2.7. Chest x-ray showed near complete opacification of the left hemithorax. Suspect metastatic disease bilaterally. Patient was started on IV Lasix and consult placed with Dr. Li and patient admitted to the selective care unit. 08/17. Repeat chest x-ray this morning again reveals complete opacification of the left hemithorax. She appears to be comfortable. Pulse ox is 97% on room air. CT of the chest to be done today. 08/18: CT of the chest shows metastatic malignancy suspected as there are numerous nodules in the visualized right lung. There are suspicious lobulated pleural thickening and pleural based mass in the left upper lung with mediastinal invasion present. Consider PET follow-up. CT-guided biopsy can be performed targeting the medial left upper lobe pleural-based mass. Dr. Li reviewed results with guardian with no plan for aggressive treatment. Patient will be discharged to [facility] today in stable condition. PLan is for hospice care. Pulse ox 96% on room air. Repeat INR is 5.3. Coumadin will be discontinued off discharge meds and to be resumed after INR is therapeutic. Discharge diagnoses: 1. Dyspnea secondary to near complete opacification of the left hemithorax and suspected bilateral metastatic lung disease, possible postobstructive pneumonia or gram negative pneumonia. 2. Paroxysmal atrial fibrillation. 3. Hypertension, hypertensive cardiovascular disease with left ventricular hypertrophy. 4. Hyperlipidemia. 5. Vascular dementia. 6. Generalized osteoarthritis. Stable. 7. Overactive bladder. 8. Coagulopathy secondary to Coumadin use. 9. Severe protein calorie malnutrition. Routine supplementation. Discharge plan: [facility]. Impression and plan of care have been directed as dictated by the signing physician. Ashley Orellana nurse practitioner acting as scribe for signing physician. Patient Condition at Discharge: Good Plan - Discharge Summary Discharge Rx Participant: No New Discharge Prescriptions: Continue Lisinopril-Hctz 10-12.5 mg [Zestoretic 10-12.5] 1 tab PO QAM Donepezil HCl [Aricept] 10 mg PO HS@2100 Memantine [Namenda] 10 mg PO BID@0700,2100 Discontinued Simvastatin [Zocor] 40 mg PO HS@2100 Oxybutynin Chloride [Ditropan XL] 5 mg PO DAILY@0700 Warfarin [Coumadin] 5 mg PO DAILY@1900 Discharge Medication List Donepezil HCl [Aricept] 10 mg PO HS@2100 02/03/14 [History] Lisinopril-Hctz 10-12.5 mg [Zestoretic 10-12.5] 1 tab PO QAM 02/03/14 [History] Memantine [Namenda] 10 mg PO BID@0700,2100 08/16/17 [History] Follow up Appointment(s)/Referral(s): Francisco Gonzales MD [Primary Care Provider] - 1 Week Activity/Diet/Wound Care/Special Instructions: Hold coumadin and recheck INR on Thursday. Resume coumadin based on results. Discharge Disposition: TRANSFER TO SNF/ECF
[2017-08-18 16:00] VITALS: BP 102/57; PULSE 108
== END 2017-08-18 19:22 | DRG 177 ==
LOC: EC 09:26 → EEVIPCON 13:27 → 6SEL 13:27
PROVIDERS: ADMIT Internal Medicine; ATTEND Internal Medicine
DX: J15.6 Pneumonia due to other Gram-negative bacteria (principal); E43 Unspecified severe protein-calorie malnutrition; C34.12 Malignant neoplasm of upper lobe, left bronchus or lung; C78.01 Secondary malignant neoplasm of right lung; E87.1 Hypo-osmolality and hyponatremia; J94.2 Hemothorax; Z68.1 Body mass index [BMI] 19.9 or less, adult; E78.5 Hyperlipidemia, unspecified; F01.50 Vascular dementia, unspecified severity, without behavioral disturbance, psychotic disturbance, mood disturbance, and anxiety; I11.0 Hypertensive heart disease with heart failure; I48.2 Chronic atrial fibrillation; I50.9 Heart failure, unspecified; M15.9 Polyosteoarthritis, unspecified; N32.81 Overactive bladder; T45.515A Adverse effect of anticoagulants, initial encounter; Z96.653 Presence of artificial knee joint, bilateral; Z96.643 Presence of artificial hip joint, bilateral; R79.1 Abnormal coagulation profile; Z79.01 Long term (current) use of anticoagulants; Z79.899 Other long term (current) drug therapy; Z82.49 Family history of ischemic heart disease and other diseases of the circulatory system; Z82.5 Family history of asthma and other chronic lower respiratory diseases; Z85.828 Personal history of other malignant neoplasm of skin; Z90.710 Acquired absence of both cervix and uterus; Z88.6 Allergy status to analgesic agent; Z88.3 Allergy status to other anti-infective agents; Z88.5 Allergy status to narcotic agent; Z88.0 Allergy status to penicillin; Z88.8 Allergy status to other drugs, medicaments and biological substances; D63.8 Anemia in other chronic diseases classified elsewhere; Z51.5 Encounter for palliative care
CPT/HCPCS: 36415; 71046; 71260; 80053; 81001; 82550; 82553; 83735; 83880; 84484; 85025; 85610; 85730; 93005; 94760; 99285